=== PATIENT | female | born 2000 | race Two or more races ===

== ENCOUNTER 2024-06-24 21:54 | Emergency (ER) | payer MEDICAID ==
[~2024-06-24] VITALS: Ht 165.1 cm; Wt 63.5 kg
[2024-06-24 22:19] VITALS: BP 121/86; PULSE 79; RESP 16; O2SAT 99
[2024-06-24] MEDS ORDERED: predniSONE 5 MG TAB PO ONE (22:30)
[2024-06-24] MEDS ORDERED: DIPH25TA54 PO (22:31)
--- NOTE | 2024-06-24 22:35 | ED.PDOC ---
History of Present Illness(SKN HPI Comments 24-year-old female approximately 11 weeks , with a rash that has been ongoing for the past 2 weeks. She states the rash is itchy. No similar symptoms in the past. No known exposure to any new soaps, lotions, creams. She has no known allergies. Rashes present over her upper, lower body and back. 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 She does not have a PCP at this time. She has not taken anything for the rash at home. Chief Complaint: Rash Time Seen by MD: 22:07 Home Meds Active Scripts Diphenhydramine Hcl (Benadryl Allergy) 25 Mg Tab, 25 MG PO TIDPRN PRN for 3 Days, #9 TAB Prov:RAQUEL BROWN MD 06/24/24 Mode of Arrival: Ambulatory Constitutional: reports: others EENTM: reports: others Respiratory: reports: others Cardiovascular: reports: others Gastrointestinal: reports: others Genitourinary: reports: others Neurological: reports: others Musculoskeletal: reports: others Integumetry: reports: others Allergic/Immunocompromised: reports: others Hematologic/Lymphatic: reports: others Endocrine: reports: others Psychiatric: reports: others Unable to Obtain due to: Other All Other Systems: Reviewed and Negative (REVIEW OF SYSTEMS: No fever, no chills, or fatigueHEENT: No sore throat, no earache, no congestion, no neck pain. Cardiac: No chest pain. No palpitations. Lungs: No shortness of breath, no cough. GI: No nausea, no vomiting, no diarrhea, no constipation, no abdominal painGU: No dysuria, frequency, or urgency. No hematuria. Musculoskeletal: No joint pain , no joint swelling, no extremity edema. Skin: Positive rash, positive itching. Neuro: No headache, no dizziness, no weakness) Physical Exam Exam Comments General: Awake, alert and oriented. No acute distress. Skin: Skin in warm, dry and intact. Appropriate color for ethnicity. Nailbeds pink with no cyanosis. HEENT: The head is normocephalic and atraumatic. Conjunctivae are clear without exudates or hemorrhage. Sclera is non-icteric. EOM are intact. No signs of nystagmus. Eyelids are normal in appearance without swelling or lesions. Oral mucosa is pink and moist Neck: The neck is supple with normal range of motion. No JVD. Cardiac: Heart rate and rhythm are normal. No murmurs, gallops, or rubs are auscultated. Respiratory: No signs of respiratory distress. Lung sounds are clear in all lobes bilaterally without rales, ronchi, or wheezes. Skin: Urticarial, erythematous blanching rash, generalized over chest, abdomen, upper extremities. No blisters, bullae, underlying fluctuance, papules or discharge. Extremities: Upper and lower extremities are atraumatic in appearance without deformity or edema. Neurological: The patient is awake, alert and oriented to person, place, and time with normal speech. Speech is clear. There is no facial asymmetry. Psychiatric: Appropriate mood and affect. Good judgement and insight. No visual or auditory hallucinations. General Appearance: Other HEENT: Other Neck: Other Respiratory: Other Cardiovascular: Other Breast Exam: Other Gastrointestinal: Other Genitalia: Deferred Pelvic: Other Rectal: Other Extremities: Other Neurologic: Other Cerebellar Function: Other Reflexes: Other Skin: Other Lymphatic: Other Was a procedure done? Was a procedure done?: No Differential Diagnosis (INTG) Differential Diagnosis: Cellulitis, Other (Hives, dermatosis of , anaphylaxis,) Differential Diagnosis: Contact Dermatitis, Drug Reaction, Scabies, Urticaria X-Ray, Labs, Meds, VS Vital Signs Date Time Temp Pulse Resp B/P (MAP) Pulse Ox O2 Delivery O2 Flow Rate FiO2 24 22:19 98.3 79 16 121/86 (98) 99 Time of 1ST Reevaluation: 01:54 Reevaluation 1ST: N/A Patient Education/Counseling: Treatment, Need For Follow Up Family Education/Counseling: No Family Present Departure 1 Departure Time of Disposition: 22:30 Impression: Primary Impression: Rash Additional Impression: First trimester Disposition: 01 HOME / SELF CARE / HOMELESS Condition: Good Additional Instructions: INSTRUCCIONES DE PAIGE DE Urgencias Instrucciones: Esperanza atentamente todas las instrucciones proporcionadas en amara paquete. Aunque le hayan dado el paige del Departamento de Emergencias, esto no significa que tenga un "certificado de buena haider". Hoy no se rodriguez realizado ningn diagnstico definitivo para henry sntomas. Es posible que ests en proceso de desarrollar beny enfermedad grave. Es por eso que debe regresar al servicio de urgencias sin falta si presenta algn sntoma nuevo o que empeora (especialmente si henry sntomas incluyen erupcin cutnea que empeora, dolor en el pecho, dificultad para respirar, dolor abdominal, fiebre, dolor de pratibha, confusin, dificultad para bob o dificultad para caminar). Tambin es muy importante que consulte a un mdico de atencin primaria dentro de los prximos 2 o 3 bennett para realizar un seguimiento. Si no puede conseguir beny nick, regrese al servicio de urgencias para beny nueva evaluacin. e-Prescriptions Diphenhydramine Hcl (Benadryl Allergy) 25 Mg Tab 25 MG PO TIDPRN PRN for 3 Days, #9 TAB Prov: RAQUEL BROWN MD 06/24/24 Comments Urticarial appearing blanching rash generalized. Patient is well-appearing, nontoxic, vital signs within normal limits. Possible dermatosis of . Do not suspect SJS, anaphylaxis,TENs. Patient well-appearing, nontoxic. Advised prompt follow-up, return to the ED with any new, worsening or concerning symptoms. Decision regarding hospitalization or escalation of hospital level of care: Risks and benefits of admission for further treatment of patient's condition was considered however due to patient's stable condition patient will be discharged to follow up closely or return to care for worsening of condition or inability to follow up. Critical Care Note Critical Care Time?: No Stability Stability form required: No RAQUEL BROWN MD Jun 24, 2024 22:35
== END 2024-06-25 01:48 | disposition home or self-care (01) ==
LOC: ER 21:54
DX: O99.711 Diseases of the skin and subcutaneous tissue complicating pregnancy, first trimester (principal); R21 Rash and other nonspecific skin eruption; Z3A.11 11 weeks gestation of pregnancy; Z79.899 Other long term (current) drug therapy

== ENCOUNTER 2024-09-11 11:30 | Observation (INO) | payer MEDICAID ==
[~2024-09-11 11:30] MED LIST: DIPH25TA54 PO
--- NOTE | 2024-09-11 17:00 | DVHDS2 ---
Physician Discharge Progress N Final Diagnosis: IUP 23 weeks, Abdominal Pain Secondary Diagnosis: Round ligament pain Operations or Procedures: Operations or Procedures Observation Condition on Discharge: Stable Disposition: Home Discharge Instructions: Diet: Regular Activity: No Restrictions, As Tolerated Follow Up/Referral: as scheduled w/ primary OB Medications: Tylenol OTC prn pain Follow Up Care: Discharge Statement: "Patient was advised to return to the ER or call 911 if any headaches, dizziness, shortness of breath, chest pain, abdominal pain, bleeding, fevers, or worsening of medical condition. Patient was counseled about treatment plan, medications, possible side effects, patientverbalized understanding. All questions were answered to the best of my ability. This discharge took greater then 30 minutes in planning, reviewing documentation, counseling the patient, and discussing with other team members." Visit Coding OBGYN Date of Service: Sep 11, 2024 Billing Provider: PAYTON PATEL DO HOSPICE MASSAGE THERAPIST Common Visit Codes: 46299-FWG/OBS SAME DATE (MOD) HOSPICE MASSAGE THERAPIST Procedure Codes: 26639-62- NON-STRESS TEST PAYTON PATEL DO Sep 11, 2024 17:00
== END 2024-09-11 13:13 | disposition home or self-care (01) ==
LOC: UNDOADMOB 11:30 → LDRP 11:30
PROVIDERS: ADMIT Obstetrics & Gynecology; ATTEND Obstetrics & Gynecology
DX: O26.892 Other specified pregnancy related conditions, second trimester (principal); R10.2 Pelvic and perineal pain; Z98.890 Other specified postprocedural states; Z79.899 Other long term (current) drug therapy; Z3A.23 23 weeks gestation of pregnancy
CPT/HCPCS: 59025; 81002; 82948; 94760; G0378

== ENCOUNTER 2024-10-20 20:50 | Observation (INO) | payer MEDICAID ==
[~2024-10-20] VITALS: Ht 162 cm; Wt 66.2 kg
--- NOTE | 2024-10-21 07:36 | DVHDS2 ---
Physician Discharge Progress N Final Diagnosis: dizziness Operations or Procedures: Operations or Procedures nst Condition on Discharge: Good Disposition: Home Discharge Instructions: Diet: Regular Activity: No Restrictions, As Tolerated Follow Up/Referral: NAEL PARKINSON CHARLIE 10/26/2024 Medications: na Follow Up Care: Specialist: 1w Discharge Statement: "Patient was advised to return to the ER or call 911 if any headaches, dizziness, shortness of breath, chest pain, abdominal pain, bleeding, fevers, or worsening of medical condition. Patient was counseled about treatment plan, medications, possible side effects, patientverbalized understanding. All questions were answered to the best of my ability. This discharge took greater then 30 minutes in planning, reviewing documentation, counseling the patient, and discussing with other team members." Visit Coding OBGYN Date of Service: Oct 20, 2024 Billing Provider: MARTIN GUERRA DO GTA Common Visit Codes: 23336-[id number] OBS CARE (HIGH) GTA Procedure Codes: 71151-70- NON-STRESS TEST MARTIN GUERRA DO Oct 21, 2024 07:36
== END 2024-10-20 22:08 | disposition home or self-care (01) ==
LOC: LDRP 20:50
PROVIDERS: ADMIT Obstetrics & Gynecology; ATTEND Obstetrics & Gynecology
DX: O26.893 Other specified pregnancy related conditions, third trimester (principal); R42 Dizziness and giddiness; Z3A.28 28 weeks gestation of pregnancy; Z79.899 Other long term (current) drug therapy
CPT/HCPCS: 81002; 94760; G0378

== ENCOUNTER 2025-01-04 10:57 | Inpatient (IN) | payer MEDICAID ==
[~2025-01-04] VITALS: Ht 162.6 cm; Wt 68.0 kg
[2025-01-04] MEDS ORDERED: NALBUPHINE HCL 10 MG/1ml INJECTION IV PRN (11:30)
[2025-01-04] MEDS ORDERED: LIDOCAINE 2%HCL (LOCAL ANESTH.) INJ 20ML MDV IJ PRN (11:30)
--- NOTE | 2025-01-04 11:56 | DVHHP2 ---
OB CC & HPI Date Date of Admission: Jan 04, 2025 Patient Identification: : 1 Para: 0 EDC: Jan 08, 2025 EGA: 39wks Chief Complaints: Reason for admission: rupture of membranes Admission Nurse Assessment Rev: No History of Present Complaints pt is admitted for rom ,no vag bleeding positive pooling and clear flfd Past Medical History Cardiac: No pertinent Hx Pulmonary: No pertinent Hx Central Nervous System: No pertinent Hx GI: No pertinent Hx Hemotology/Oncology: No pertinent Hx Hepatobiliary: No pertinent Hx Psychiatric: No pertinent Hx Musculoskeletal: No pertinent Hx Rheumotologic: No pertinent Hx Infectious Disease: No peritnent Hx ENT: No pertinent Hx Renal/: No pertinent Hx Endocrine: No pertinent Hx Dermatology: No pertinent Hx Past Surgical History: No pertinent Hx OB History OB History Care: Good Care Ultrasounds: Normal mid trimester US Obstetrical Complications: None Medical Complications: None Allergies: Coded Allergies: NO KNOWN ALLERGIES (Unverified , 10/20/24) Home Meds Active Scripts Diphenhydramine Hcl (Benadryl Allergy) 25 Mg Tab, 25 MG PO TIDPRN PRN for 3 Days, #9 TAB Prov:RAQUEL BROWN MD 06/24/24 Current Medications Current Medications Medications (Trade) Dose Ordered Sig/Gurpreet Route PRN Reason Start Time Stop Time Status Last Admin Lactated Ringer's 1,000 ml @ 125 mls/hr Q8H IV 01/04/25 11:30 UNV Nalbuphine HCl (Nubain) 10 mg Q4HP PRN IV MODERATE PAIN (4-6 PAIN SCALE) 01/04/25 11:30 UNV Witch Tatyana (Tucks) 1 pad PRN PRN TOP PERINEAL AREA DISCOMFORT 01/04/25 11:30 UNV Sodium Lauryl Sulfate (Phisoderm) 240 ml PRN PRN TOP PERINEAL AREA DISCOMFORT 01/04/25 11:30 UNV Benzocaine (Dermoplast) 1 applic PRN PRN TOP PERINEAL AREA DISCOMFORT 01/04/25 11:30 UNV Misoprostol (Cytotec) 50 mcg Q4HPRN PRN PO CERVICAL RIPENING 01/04/25 11:30 UNV Lidocaine HCl (Xylocaine) 20 ml ONCE PRN IJ PERINEAL AREA DISCOMFORT 01/04/25 11:30 UNV Family & Social History Family/Social History Blood Type: Unknown Rubella: unknown RPR/VDRL: Negative GBS Status: Unknown HBsAG: Negative Review of Systems Constitutional: No symptom reported Ears, Nose, & Throat: No symptom reported Eyes: No symptom reported Pulmonary/Respiratory: No symptom reported Cardiovascular: No symptom reported Gastrointestinal: No symptom reported Genitourinary: No symptom reported Musculoskeletal: No symptom reported Skin: No symptom reported Psychiatric: No symptom reported Endocrine: No symptom reported Hemotologic/Lymphatic: No symptom reported OB Admission Exam Physical Exam HEENT: TMs Normal, Fontanelles Normal, Nasal Mucosa Normal, Eyes non-injected, Oropharynx Normal, PERRLA, Moist Membranes, EOMI Heart: Rhythm Normal Lungs: Clear Abdomen: Non tender Extremities: Normal Reflexes: Normal Cervical Dilatation: 2cm Effacement: 25% Station: -2 Membranes: Ruptured Amniotic Fluid: Clear Heart Rate: 130's Accelerations: Accelerations Present Decelerations: No Decelerations Short Term Variability: Present Shelter Variability: Average (6-25) Contractions on Admission: >10 Minutes Apart Intensity: Mild OB Plan Plan Admitting Diagnosis: iup at 39 wks with SROM Plan: Expectant Management Induction Methd: Misoprostol protocol Other Plan: informed consent obtained Visit Coding OBGYN Date of Service: Jan 04, 2025 Billing Provider: MARTIN GUERRA DO SECONDARY ART TEACHER Common Visit Codes: [id number] OBS CARE (HIGH) SECONDARY ART TEACHER Procedure Codes: 45719-57- NON-STRESS TEST MARTIN GUERRA DO Jan 04, 2025 11:56
--- NOTE | 2025-01-04 12:16 | DVHPN2 ---
Chief Complaints Patient reports: No new complaints Nursing reports: No new complaints Objective Medications Current Medications Medications (Trade) Dose Ordered Sig/Gurpreet Route PRN Reason Start Time Stop Time Status Last Admin Benzocaine (Dermoplast) 1 applic PRN PRN TOP PERINEAL AREA DISCOMFORT 01/04/25 11:30 UNV Lactated Ringer's 1,000 ml @ 125 mls/hr Q8H IV 01/04/25 11:30 UNV Lidocaine HCl (Xylocaine) 20 ml ONCE PRN IJ PERINEAL AREA DISCOMFORT 01/04/25 11:30 UNV Misoprostol (Cytotec) 50 mcg Q4HPRN PRN PO CERVICAL RIPENING 01/04/25 11:30 UNV Nalbuphine HCl (Nubain) 10 mg Q4HP PRN IV MODERATE PAIN (4-6 PAIN SCALE) 01/04/25 11:30 UNV Sodium Lauryl Sulfate (Phisoderm) 240 ml PRN PRN TOP PERINEAL AREA DISCOMFORT 01/04/25 11:30 UNV Witch Tatyana (Tucks) 1 pad PRN PRN TOP PERINEAL AREA DISCOMFORT 01/04/25 11:30 UNV Others EXAM UNCHANGED Ass/Plan Assessment 39WKS WITH SROM Plan CYTOTEC SUPPORTIVE CARE Visit Coding OBGYN Date of Service: Jan 04, 2025 Billing Provider: MARTIN GUERRA DO DOORMAKER Common Visit Codes: 42139-[id number] OBS CARE (HIGH) DOORMAKER Procedure Codes: 22182-71- NON-STRESS TEST MARTIN GUERRA DO Jan 04, 2025 12:16
[2025-01-04 12:22] LABS: Basophils # (auto) 0 10 ^3/uL (0-0.2); Basophils % (auto) 0.2 % (0.0-2.0); Eosinophils # (auto) 0.1 10 ^3/uL (0-0.8); Eosinophils % (auto) 0.8 % (0.0-7.0); Hematocrit 35.9 % (36.0-46.0); Hemoglobin 12.6 g/dL (12.2-16.2); Lymphocytes # (auto) 1.6 10 ^3/uL (0.4-5.4); Lymphocytes % (auto) 24.2 % (10.0-50.0); Mean Corpuscular Hemoglobin 32.8 pg (28.0-32.0); Mean Corpuscular Hgb Conc. 35.1 g/dL (32.0-36.0); Mean Corpuscular Volume 93.3 fL (80.0-100.0); Monocytes # (auto) 0.4 10 ^3/uL (0-1.3); Monocytes % (auto) 6.5 % (0.0-12.0); Neutrophils # (auto) 4.4 10 ^3/uL (1.6-8.6); Neutrophils % (auto) 68.3 % (37.0-80.0); Platelet Count (auto) 141 10^3/uL (140-450); Red Blood Cells 3.85 10^6/uL (4.0-5.20); Red Cell Distribution Width 13.1 % (11.8-14.3); White Blood Cell 6.5 10^3/uL (4.4-10.8)
[2025-01-04 12:32] LABS: Urine Bacteria None Seen /hpf (None Seen)
[2025-01-04 12:40] LABS: Albumin 4.3 g/dL (3.2-4.8); Anion Gap 10 (5-15); Aspartate Aminotransferase 15 U/L (<34); BUN/Creatinine Ratio 10.9 (10.0-20.0); Calcium 9.9 mg/dL (8.7-10.4); Glucose 82 mg/dL (74-106); Potassium 3.6 mmol/L (3.5-5.1); Sodium 138 mmol/L (136-145); Total Protein 7.1 g/dL (5.7-8.2)
[2025-01-04 12:41] LABS: Alanine Aminotransferase < 9 U/L (7-40); Alkaline Phosphatase 282 U/L (46-116); Bilirubin, Total 0.9 mg/dL (0.2-1.0); Blood Urea Nitrogen 7 mg/dL (9-23); Carbon Dioxide 20 mmol/L (20-31); Chloride 108 mmol/L (98-107)
[2025-01-04 12:47] LABS: Urine Blood Negative /uL (Negative); Urine Clarity Clear (Clear); Urine Color Light-Yellow (Yellow); Urine Protein, UAD Negative (Negative); Urine Squamous Epithelial Cell FEW /hpf (<5); Urine Urobilinogen Normal (Negative); Urine WBC 3 /HPF (0-5); Urine pH 5.5 (5.0-9.0)
[2025-01-04] MEDS: miSOPROStol 50 MCG per PRE-CUT 1/2 TAB PO PRN (12:55)
[2025-01-04] MEDS: LACTATED RINGER'S 1,000 ML IV SCH (12:56)
[2025-01-04 12:59] LABS: Amphetamine Screen, Urine Neg (NEGATIVE); Barbiturate Scree,Urine Neg (NEGATIVE); Benzodiazephine Screen, Urine Neg (NEGATIVE); Cocaine Screen, Urine Neg (NEGATIVE); Opiate Scree,Urine Neg (NEGATIVE); Phencyclidine Screen, Urine Neg (NEGATIVE)
[2025-01-04 13:00] LABS: Cannabinoid Screen, Urine Neg (NEGATIVE)
[2025-01-04 13:09] LABS: INR 0.88 (0.9-1.15); Partial Thromboplastin Time 26.5 SEC (24.5-34.5); Prothrombin Time 9.4 sec (9.3-11.8)
[2025-01-04] MEDS ORDERED: LACTATED RINGER'S 500 ML IV ONE (15:00)
[2025-01-04] MEDS ORDERED: LACTATED RINGER'S 1,000 ML IV ONE (15:00)
[2025-01-04] MEDS: ePHEDrine SULFATE 50 MG/ML AMP ONE (15:14)
[2025-01-04] MEDS: ROPIVACAINE HCL 100 ML ONE (15:57)
[2025-01-04] MEDS ORDERED: LACT. RINGERS/OXYTOCIN 20UNITS 500 ML IV ONE (18:15)
[2025-01-04] MEDS ORDERED: TERBUTALINE SULFATE 1 MG/ML 1ML VIAL SC PRN (18:45)
[2025-01-04] MEDS: ceFAZolin 2 GM/D5W50ml 50 ML IV ONE ×2 (19:09→20:32)
[2025-01-04] MEDS: PHISODERM TOP SOLN 240ML BTL TOP PRN (20:37)
[2025-01-04] MEDS: WITCH HAZEL-GLYCERIN PAD TOP PRN (20:37)
[2025-01-04] MEDS: DERMOPLAST 60ML BOTTLE TOP PRN (20:37)
[2025-01-04] MEDS: LACT. RINGERS/OXYTOCIN 20UNITS 1,000 ML IV SCH (21:59)
[2025-01-05] MEDS: ROPIVACAINE HCL 100 ML ONE ×3 (02:56→21:14)
[2025-01-05] MEDS: ceFAZolin 1GM/50ML 50 ML IV SCH ×2 (02:56→21:51)
--- NOTE | 2025-01-05 07:16 | DVHPN2 ---
Chief Complaints Patient reports: No new complaints Nursing reports: No new complaints Objective Medications Current Medications Medications (Trade) Dose Ordered Sig/Gurpreet Route PRN Reason Start Time Stop Time Status Last Admin Benzocaine (Dermoplast) 1 applic PRN PRN TOP PERINEAL AREA DISCOMFORT 01/04/25 11:30 01/04/25 20:37 Cefazolin Sodium 50 ml @ 100 mls/hr Q8H IV 01/05/25 03:00 01/05/25 02:56 Lactated Ringer's 1,000 ml @ 125 mls/hr Q8H IV 01/04/25 11:30 01/04/25 23:19 Lidocaine HCl (Xylocaine) 20 ml ONCE PRN IJ PERINEAL AREA DISCOMFORT 01/04/25 11:30 Misoprostol (Cytotec) 50 mcg Q4HPRN PRN PO CERVICAL RIPENING 01/04/25 11:30 01/04/25 12:55 Nalbuphine HCl (Nubain) 10 mg Q4HP PRN IV MODERATE PAIN (4-6 PAIN SCALE) 01/04/25 11:30 Oxytocin 1,000 ml @ 6 ml/hr Q24H IV 01/04/25 18:45 01/04/25 21:59 Sodium Chloride 1,000 ml @ 100 mls/hr Q10H IUPC 01/05/25 06:30 Sodium Lauryl Sulfate (Phisoderm) 240 ml PRN PRN TOP PERINEAL AREA DISCOMFORT 01/04/25 11:30 01/04/25 20:37 Terbutaline Sulfate (Brethine Inj) 0.25 mg ONCE PRN SC Uterine tachysystole 01/04/25 18:45 Witch Tatyana (Jefcks) 1 pad PRN PRN TOP PERINEAL AREA DISCOMFORT 01/04/25 11:30 01/04/25 20:37 Others ve-4cm/80/-2 Studies Laboratory Tests 01/04/25 11:35 Test 01/04/25 11:35 Range/Units Serum Glucose 82 74-106 mg/dL Ass/Plan Assessment 39WKS WITH SROM Plan iupc placed,start amnio infusion cont with pitocin Visit Coding OBGYN Date of Service: Jan 05, 2025 Billing Provider: MARTIN GUERRA DO BARREL PAINTER Common Visit Codes: [id number] INP/OBS CARE (HIGH) BARREL PAINTER Procedure Codes: 03408-61- NON-STRESS TEST MARTIN GUERRA 27, 2025 07:16
[2025-01-05] MEDS ORDERED: GENTAMICIN PER PHARMACY 0 ML IV SCH (07:30)
--- NOTE | 2025-01-05 07:52 | EPIDURAL ---
Anesthesia Procedural Note - Epidural Informed consent obtained?: Yes Medication Administered: Fentanyl 100 mcg Sterile prept drape: Yes Spinal level of insertion: L4-L5 Test dose of lidocaine & Epine: Negative Infusion started: Yes Start time: 07:00 End time: 07:40 Procedure description Procedure description: Called for breakthrough pain. Patient had epidural placed yesterday and reports that it stopped working about an hour ago.Epidural catheter is displaced, so I removed it with blue tip intact. Discussed replacing it and she agrees. Informed consent obtained for CSE. Sitting position, sterile prep and drape. Patient really wants her present to support her. Time out done. L4-5 space infiltrated with 1 lido. Epidural placed with DANIELA at 6cm. 25G spinal needle placed +clear CSF. 15mcg fentanyl given IT. Epidural catheter secured at 12cm. Aspiration and test dose (3cc 1.% lido with epi) negative. 85mcg fentanyl given via epidural. Patient reports pain relief. 0.2% ropivacaine infusion resumed. Will follow as needed. ASHLYN CAMPOS MD Jan 05, 2025 07:52
[2025-01-05] MEDS: fentaNYL CITRATE 100 MCG/2 ML VL ONE (08:17)
[2025-01-05] MEDS: GENTAMICIN SULFATE 100 MG in D5W 5% 100 ML IV ONE (08:36)
[2025-01-05] MEDS: AMPICILLIN SOD 2GM INJ 2 GM in SODIUM CHL 0.9% 100 ML IV SCH (10:05)
[2025-01-05] MEDS ORDERED: ACETAMINOPHEN 325 MG TAB PO PRN (12:30)
--- NOTE | 2025-01-05 12:59 | DVHPN2 ---
Chief Complaints Patient reports: No new complaints Nursing reports: No new complaints Objective Vitals Vital Signs Date Time Temp Pulse Resp B/P (MAP) Pulse Ox O2 Delivery O2 Flow Rate FiO2 01/05/25 08:17 112/56 Medications Current Medications Medications (Trade) Dose Ordered Sig/Gurpreet Route PRN Reason Start Time Stop Time Status Last Admin Acetaminophen (Tylenol Tablet) 650 mg Q4HP PRN PO PAIN SCALE 1-3 OR TEMP>100.4 01/05/25 12:30 Ampicillin Sodium 2 gm/Sodium Chloride 100 ml @ 100 mls/hr Q6HR IV 01/05/25 12:00 01/05/25 10:05 Gentamicin Sulfate 100 mg/ Dextrose 102.5 ml @ 100 mls/hr Q8H IV 01/05/25 16:00 Gentamicin Sulfate 0 ml @ 0 mls/hr PER PHARMACY IV 01/05/25 07:30 Oxytocin 1,000 ml @ 6 ml/hr Q24H IV 01/04/25 18:45 01/04/25 21:59 Sodium Chloride 1,000 ml @ 100 mls/hr Q10H IUPC 01/05/25 06:30 Terbutaline Sulfate (Brethine Inj) 0.25 mg ONCE PRN SC Uterine tachysystole 01/04/25 18:45 Others ve-6.5cm/80/-1 Studies Laboratory Tests 01/04/25 11:35 Test 01/04/25 11:35 Range/Units Serum Glucose 82 74-106 mg/dL Ass/Plan Assessment 39WKS WITH SROM Plan cont with pitocin Visit Coding OBGYN Date of Service: Jan 05, 2025 Billing Provider: MARTIN GUERRA DO FINAL FINISHER Common Visit Codes: [id number] OBS CARE (HIGH) FINAL FINISHER Procedure Codes: 07010-20- NON-STRESS TEST MARTIN GUERRA DO Jan 05, 2025 12:59
[2025-01-05] MEDS: fentaNYL CITRATE 100 MCG/2 ML VL EPI ONE (14:12)
[2025-01-05] MEDS: GENTAMICIN SULFATE 100 MG in D5W 5% 100 ML IV SCH (15:57)
[2025-01-05] MEDS: LACT. RINGERS/OXYTOCIN 20UNITS 500 ML IV ONE ×3 (16:36→21:11)
--- NOTE | 2025-01-05 17:02 | LDN2 ---
Labor and Delivery Note Date 01/05/25 Age 24 1 Para 1 EDC 6-30 EGA 39WKS Diagnosis SROM Vaginal Delivery: VTX Vacuum Assisted: No Placenta: Spontaneous Sex: Female Weight 7-11 Apgars 7-8 Nuchal Cord Transected: No Amniotic Fluid: Clear Anesthesia EPIDURAL AND XYLOCAINE Episiotomy: No Extension: Yes (MIDLINE 2ND DGE PERINEAL LAC AND YURI PERIURETHRAL LAC) Repaired with 2-0 CHROMIC EBL 300ML Labs Laboratory Tests 01/04/25 11:35: Rubella Antibody Positive Blood Bank 01/04/25 11:35: Blood Type A POSITIVE Complications NONE Conditions STABLE Comments/Significant Med Nichelle SPEC EXAM NO CXAL LAC Visit Coding OBGYN Date of Service: Jan 05, 2025 Billing Provider: MARTIN GUERRA DO SUPERVISORY AIDE Common Visit Codes: [id number] OBS CARE (HIGH) SUPERVISORY AIDE Procedure Codes: 76854-TQA DELIVERY ONLY MARTIN GUERRA DO Jan 05, 2025 17:02
[2025-01-05] MEDS ORDERED: ONDANSETRON ODT 4 MG TAB PO PRN (18:30)
[2025-01-05] MEDS: IBUPROFEN 600 MG TAB PO PRN (18:57)
[2025-01-05 19:00] VITALS: BP 129/76; PULSE 89; RESP 17; TEMP 98.9; O2SAT 100
[2025-01-05] MEDS: ePHEDrine SULFATE 50 MG/ML AMP IV ONE ×2 (21:10→21:14)
[2025-01-05] MEDS: ePHEDrine SULFATE 50 MG/ML AMP ONE (21:11)
[2025-01-05] MEDS: SODIUM CHLORIDE 0.9% 1,000 ML IUPC SCH (21:11)
[2025-01-05] MEDS: SODIUM CHLORIDE 0.9% 300 ML IUPC ONE (21:11)
[2025-01-05] MEDS: METHYLERGONOVINE MALEATE 0.2 MG/ML AMP IM ONE (21:12)
[2025-01-05] MEDS: LIDOCAINE HCL 2 %PF INJ 10ML AMP IJ ONE ×2 (21:13)
[2025-01-05] MEDS: Lidocaine W-Epinephrine 1.5%-1:200,000 INJ 10ml Vial IJ ONE (21:13)
[2025-01-05] MEDS: Lidocaine W-Epinephrine 1.5%-1:200,000 INJ 10ml Vial ONE (21:13)
[2025-01-05] MEDS: NALOXONE HCL 0.4 MG/ML VIAL ONE (21:13)
[2025-01-05] MEDS: NALOXONE HCL 0.4 MG/ML VIAL IV ONE (21:14)
[2025-01-05] MEDS: DOCUSATE SOD 100 MG CAP PO SCH (21:50)
[2025-01-05 23:00] VITALS: BP 114/57; PULSE 72; RESP 17; TEMP 97.9; O2SAT 98
[2025-01-06 03:00] VITALS: BP 105/55; PULSE 75; RESP 16; TEMP 97.7; O2SAT 98
--- NOTE | 2025-01-06 05:19 | DVHPN2 ---
Chief Complaints Patient reports: No new complaints Nursing reports: No new complaints Objective Vitals Vital Signs Date Time Temp Pulse Resp B/P (MAP) Pulse Ox O2 Delivery O2 Flow Rate FiO2 01/06/25 03:00 97.7 75 16 105/55 (72) 98 97.7 01/05/25 19:00 Room Air Medications Current Medications Medications (Trade) Dose Ordered Sig/Gurpreet Route PRN Reason Start Time Stop Time Status Last Admin Acetaminophen (Tylenol Tablet) 650 mg Q4HP PRN PO MILD PAIN (1-3 PAIN SCALE) 01/05/25 18:30 Cefazolin Sodium 50 ml @ 100 mls/hr Q8HR IV 01/05/25 22:00 01/05/25 21:51 Docusate Sodium (Colace Capsule) 200 mg HS PO 01/05/25 22:00 01/05/25 21:50 Gentamicin Sulfate 0 ml @ 0 mls/hr PER PHARMACY IV 01/05/25 07:30 Cancel Ibuprofen (Motrin Tablet) 600 mg Q6HP PRN PO MODERATE PAIN (4-6 PAIN SCALE) 01/05/25 18:30 01/05/25 18:57 Ondansetron HCl (Zofran Po) 4 mg Q4HPRN PRN PO NAUSEA / VOMITING 01/05/25 18:30 General: Normal Lungs: Normal Cardiovascular: Normal Abdominal: Soft Musculoskeletal: Normal Extremities: Normal Studies Laboratory Tests 01/04/25 11:35 Test 01/04/25 11:35 Range/Units Serum Glucose 82 74-106 mg/dL Ass/Plan Assessment S/P Plan DC HOME FU IN 2WKS Visit Coding OBGYN Date of Service: Jan 06, 2025 Billing Provider: MARTIN GUERRA DO BANDER OPERATOR Common Visit Codes: [id number] OBS CARE (HIGH), 51064-UCN/OBS DISCH DAY >30MIN BANDER OPERATOR Procedure Codes: 35183-58- NON-STRESS TEST, 65345-PXX DELIVERY ONLY MARTIN GUERRA DO Jan 06, 2025 05:19
--- NOTE | 2025-01-06 05:20 | DVHDS2 ---
Obstetrics Discharge Summary Obstetrics Discharge Summary Date of Admission: Jan 04, 2025 Date of Discharge: Jan 06, 2025 Reason For Admission: PROM Procedures: NST Intrapartum Procedures: Spontaneous vaginal deliv Procedures: None Operative Complicat: Laceration (Perineal) Discharge Diagnosis: Term -Delivered Discharge Information: Activity (Other), Diet (Routine), Medications (None), Instructions (Routine), Discharge to (Home), Discarge date (-) Visit Coding OBGYN Date of Service: Jan 06, 2025 Billing Provider: MARTIN GUERRA DO CIVILIAN TECHNICIAN Common Visit Codes: 31900-[id number] INP/OBS CARE(HIGH), 25042-GWP/OBS DISCH DAY >30MIN CIVILIAN TECHNICIAN Procedure Codes: 03319-HMK DELIVERY ONLY MARTIN GUERRA DO Jan 06, 2025 05:20
[2025-01-06 07:00] VITALS: BP 106/59; PULSE 61; RESP 18; TEMP 97.8; O2SAT 98
[2025-01-06] MEDS ORDERED: PREN-96 PO (07:29)
[2025-01-06 10:48] VITALS: BP 93/46; PULSE 71; RESP 18; TEMP 97.7; O2SAT 97
[2025-01-06] MEDS: ACETAMINOPHEN 325 MG TAB PO PRN (12:20)
[2025-01-06 14:58] VITALS: BP 120/77; PULSE 79; RESP 15; TEMP 98.2; O2SAT 98
[2025-01-06 19:30] VITALS: BP 120/63; PULSE 61; PULSE 67; RESP 18; TEMP 98.1; O2SAT 98
[2025-01-06] MEDS: ACETAMINOPHEN IV 1000 MG/100ML (10MG/ML) IV ONE (19:38)
[2025-01-06 23:24] VITALS: BP 103/72; PULSE 63; RESP 16; TEMP 98.3; O2SAT 99
[2025-01-07 03:00] VITALS: BP 127/69; PULSE 67; RESP 17; TEMP 98; O2SAT 100
[2025-01-07 07:00] VITALS: BP 123/77; PULSE 54; PULSE 61; RESP 16; RESP 18; TEMP 98.1; O2SAT 100; O2SAT 98
--- NOTE | 2025-01-07 07:33 | DVHPN2 ---
Progress Note Date Seen: Jan 07, 2025 Subjective S: Lochia minimal Tolerating regular diet well. Ambulating and voiding well w/o feeling lightheaded or dizzy. She reports SESAY has resolved completely Passing flatus but no BM yet. Breast feeding. Contraceptive plan: Desires and requests to be discharged home today vital signs Vital Sign Date Time Temp Pulse Resp B/P (MAP) Pulse Ox O2 Delivery O2 Flow Rate FiO2 01/07/25 03:00 98.0 67 17 127/69 (88) 100 98.0 01/06/25 19:30 Room Air Total Intake and Output 01/06/25 01/06/25 01/07/25 15:00 23:00 07:00 Output Total 200 ml Balance -200 ml medications Current Medications Medications Dose Ordered Sig/Gurpreet Route Start Time Stop Time Status Last Admin Dose Admin Lactated Ringer's 1,000 ml @ 125 mls/hr Q8H IV 01/04/25 11:30 01/04/25 23:19 125 MLS/HR Nalbuphine HCl 10 mg Q4HP PRN IV 01/04/25 11:30 Witch Tatyana 1 pad PRN PRN TOP 01/04/25 11:30 01/04/25 20:37 1 PAD Sodium Lauryl Sulfate 240 ml PRN PRN TOP 01/04/25 11:30 01/04/25 20:37 240 ML Benzocaine 1 applic PRN PRN TOP 01/04/25 11:30 01/04/25 20:37 1 APPLIC Misoprostol 50 mcg Q4HPRN PRN PO 01/04/25 11:30 01/04/25 12:55 50 MCG Lidocaine HCl 20 ml ONCE PRN IJ 01/04/25 11:30 Terbutaline Sulfate 0.25 mg ONCE PRN SC 01/04/25 18:45 Cancel Gentamicin Sulfate 0 ml @ 0 mls/hr PER PHARMACY IV 01/05/25 07:30 Cancel Ibuprofen 600 mg Q6HP PRN PO 01/05/25 18:30 01/06/25 13:51 600 MG Acetaminophen 650 mg Q4HP PRN PO 01/05/25 18:30 01/06/25 12:20 650 MG Ondansetron HCl 4 mg Q4HPRN PRN PO 01/05/25 18:30 Docusate Sodium 200 mg HS PO 01/05/25 22:00 01/05/25 21:50 200 MG laboratory and microbiology Laboratory Tests 01/04/25 11:35 Test 01/04/25 11:35 Range/Units Serum Glucose 82 74-106 mg/dL Objective O: A&O x3 NAD. Afebrile, VSS Chest: heart and lung sounds normal. Breasts: Nipples intact w/o cracks or soreness Abdomen: normal BS, soft, non-tender, no rebound or guarding, fundus firm @ U- 1, lochia minimal Perineum:- no edema, or erythema, Extremities: no edema or tenderness Lochia - minimal Assessment/Plan 24yo now ppd#2 s/p doing well. Blood Type: A Rh: Positive Breast feeding Rubella I non immune Pain control with oral medications Bowel regimen: Increase fluid intake and fiber in diet, Laxative PRN PP BCM Plan: OCP Discharge plan: May discharge home later today if condition remains stable Plan discussed with: Patient Visit Coding OBGYN Date of Service: Jan 07, 2025 Billing Provider: SERA MOISE CNM SPRAY II PAINTER Common Visit Codes: [id number] INP/OBS CARE(HIGH) SERA MOISE CNM Jan 07, 2025 07:33
--- NOTE | 2025-01-07 07:48 | DVHDS2 ---
Discharge Summary Date of Admission Jan 04, 2025 at 11:33 Date of Discharge: Jan 06, 2025 Admitting Diagnosis IUP at 39w 4d SROM Rubella non-immune Labs/Diagnostic Data: Laboratory Results Test 01/04/25 11:35 01/04/25 11:30 White Blood Count 6.5 10^3/uL (4.4-10.8) Red Blood Count 3.85 10^6/uL (4.0-5.20) Hemoglobin 12.6 g/dL (12.2-16.2) Hematocrit 35.9 % (36.0-46.0) Mean Corpuscular Volume 93.3 fL (80.0-100.0) Mean Corpuscular Hemoglobin 32.8 pg (28.0-32.0) Mean Corpuscular Hemoglobin Concent 35.1 g/dL (32.0-36.0) Red Cell Distribution Width 13.1 % (11.8-14.3) Platelet Count 141 10^3/uL (140-450) Mean Platelet Volume 11.1 fL (6.9-10.8) Neutrophils (%) (Auto) 68.3 % (37.0-80.0) Lymphocytes (%) (Auto) 24.2 % (10.0-50.0) Monocytes (%) (Auto) 6.5 % (0.0-12.0) Eosinophils (%) (Auto) 0.8 % (0.0-7.0) Basophils (%) (Auto) 0.2 % (0.0-2.0) Neutrophils # (Auto) 4.4 10 ^3/uL (1.6-8.6) Lymphocytes # (Auto) 1.6 10 ^3/uL (0.4-5.4) Monocytes # (Auto) 0.4 10 ^3/uL (0-1.3) Eosinophils # (Auto) 0.1 10 ^3/uL (0-0.8) Basophils # (Auto) 0 10 ^3/uL (0-0.2) Nucleated Red Blood Cells 0.0 % Prothrombin Time 9.4 sec (9.3-11.8) Prothrombin Time INR 0.88 (0.9-1.15) Activated Partial Thromboplast Time 26.5 SEC (24.5-34.5) Sodium Level 138 mmol/L (136-145) Potassium Level 3.6 mmol/L (3.5-5.1) Chloride Level 108 mmol/L (98-107) Carbon Dioxide Level 20 mmol/L (20-31) Anion Gap 10 (5-15) Blood Urea Nitrogen 7 mg/dL (9-23) Creatinine 0.64 mg/dL (0.550-1.02) Glomerular Filtration Rate Calc 128 mL/min (>90) BUN/Creatinine Ratio 10.9 (10.0-20.0) Serum Glucose 82 mg/dL (74-106) Calcium Level 9.9 mg/dL (8.7-10.4) Total Bilirubin 0.9 mg/dL (0.2-1.0) Aspartate Amino Transferase (AST) 15 U/L (<34) Alanine Aminotransferase (ALT) < 9 U/L (7-40) Alkaline Phosphatase 282 U/L (46-116) Total Protein 7.1 g/dL (5.7-8.2) Albumin 4.3 g/dL (3.2-4.8) Treponema pallidum Antibody Non-reactive (Negative) Hepatitis C Antibody Negative (Negative) Rubella Antibody Positive Urine Color Light-yellow (Yellow) Urine Clarity Clear (Clear) Urine pH 5.5 (5.0-9.0) Urine Specific [place] 1.010 (1.001-1.035) Urine Protein Negative (Negative) Urine Ketones Negative (Negative) Urine Blood Negative /uL (Negative) Urine Nitrite Negative (Negative) Urine Bilirubin Negative (Negative) Urine Urobilinogen Normal mg/dL (Negative) Urine Leukocyte Esterase 2+ /uL (Negative) Urine RBC 1 /hpf (0 - 4) Urine Microscopic WBC 3 /HPF (0-5) Urine Squamous Epithelial Cells Few /hpf (<5) Urine Bacteria None seen /hpf (None Seen) Urine Glucose Normal mg/dL (Normal) Urine Opiates Screen Neg (NEGATIVE) Urine Fentanyl Screen Neg (NEGATIVE) Urine Barbiturates Screen Neg (NEGATIVE) Urine Phencyclidine Screen Neg (NEGATIVE) Urine Amphetamines Screen Neg (NEGATIVE) Urine Benzodiazepines Screen Neg (NEGATIVE) Urine Cocaine Screen Neg (NEGATIVE) Urine Cannabinoids Screen Neg (NEGATIVE) Other Laboratory Tests 01/04/25 11:35 Brief Hx & Hospital Course: Admitted on 01/04/25 at EGA of 39w 3d for SROM. Induction process started with cervical ripening medication and patient then had an uneventful labor, got labor epidural for pain relief. She progressed to 2nd stage of labor and had a over 2nd degree perineal laceration. (See Delivery Note for details) Normal course except for spinal SESAY on 01/06/2025 which resolved completely with blood patch; Currently meeting milestones w/o any problem. Operations or Procedures NST Condition at Discharge: Stable Final Diagnosis/Problems List Same Term - Delivered Discharge Disposition: Home Discharge Instruct/Medications Diet: Regular Diet comment: Routine regular diet rich in fiber, protein, iron and vitamin C with adequate fluid intake Activity: Light activity Activity comment: PELVIC REST Advance as tolerated. Balance activities with rest periods No heavy lifting, pushing or straining. Pelvic rest x 6week Follow Up/Referral: self care instructions given. emergency signs and symptoms including but not limited to pre-eclampsia precautions and signs of infection, PPH & of PPD reviewed with patient. Follow up with OB Provider in 1 week Medications: Ibuprofen 600mg every 6 hours as needed for pain. Continue Vitamin and iron Discharge Statement: self care instructions given. emergency signs and symptoms including but not limited to pre-eclampsia precautions and signs of infection, PPH & of PPD reviewed with patient. Follow up with OB Provider in 1 week "Patient was advised to return to the ER or call 911 if any headaches, dizziness, shortness of breath, chest pain, abdominal pain, bleeding, fevers, or worsening of medical condition. Patient was counseled about treatment plan, medications, possible side effects, patientverbalized understanding. All questions were answered to the best of my ability. This discharge took greater then 30 minutes in planning, reviewing documentation, counseling the patient, and discussing with other team members." ASSESSMENT ASSESSMENT Hospital Course Admitted on 01/04/25 at EGA of 39w 3d for SROM. Induction process started with cervical ripening medication and patient then had an uneventful labor, got labor epidural for pain relief. She progressed to 2nd stage of labor and had a over 2nd degree perineal laceration. ( See Delivery Note for details) Normal course except for spinal SESAY on 01/06/2025 which resolved completely with blood patch; Currently meeting milestones w/o any problem. Assessment Term - Delivered Visit Coding OBGYN Date of Service: Jan 07, 2025 Billing Provider: SERA MOISE CNM [employer] OPERATOR Common Visit Codes: 50535-ZRF/OBS DISCH DAY <30MIN SERA MOISE CNM Jan 07, 2025 07:48
== END 2025-01-07 12:30 | disposition home or self-care (01) | DRG 560 ==
LOC: LDRP 10:57 → OBSVTOIN 11:33
PROVIDERS: ADMIT Obstetrics & Gynecology; ATTEND Obstetrics & Gynecology
PROC: 0KQM0ZZ Repair Perineum Muscle, Open Approach (ICD-10-PCS; principal; 2025-01-05)
PROC: 10E0XZZ Delivery of Products of Conception, External Approach (ICD-10-PCS; 2025-01-05)
PROC: 3E0S3BZ Introduction of Anesthetic Agent into Epidural Space, Percutaneous Approach (ICD-10-PCS; 2025-01-05)
PROC: 00HU33Z Insertion of Infusion Device into Spinal Canal, Percutaneous Approach (ICD-10-PCS; 2025-01-05)
DX: O42.92 Full-term premature rupture of membranes, unspecified as to length of time between rupture and onset of labor (principal); Z37.0 Single live birth; O70.1 Second degree perineal laceration during delivery; Z3A.39 39 weeks gestation of pregnancy
CPT/HCPCS: 36415; 59409; 62282; 80053; 80307; 81001; 85025; 85610; 85730; 86762; 86780; 86803; 86850; 86900; 86901; 94760; 94762; 96360; 96361; 96365; 96366; G0378; J0131; J2590; J7060